=== PATIENT | female | born 1970 | race Two or more races ===

== ENCOUNTER 2021-02-14 12:30 | Inpatient (IN) | payer OTHER ==
[~2021-02-14] VITALS: Ht 170.2 cm; Wt 122.9 kg
[2021-02-14] MEDS ORDERED: METOPR PO (16:23)
[2021-02-14] MEDS ORDERED: IBERSARTAN PO (16:23)
[2021-02-14] MEDS ORDERED: PRILOSEC OTC20 MG PO (16:24)
[2021-02-14] MEDS ORDERED: PREDNISONE (16:24)
[2021-02-16] MEDS ORDERED: RAYOS5 MG (08:50)
[2021-02-16] MEDS ORDERED: IRBESARTAN-HCT1 EAC1 (08:52)
[2021-02-16] MEDS ORDERED: TOPROL XL50 M1 PO (08:52)
== END 2021-02-18 18:40 | disposition home or self-care (01) | DRG 743 ==
LOC: O/R 02-16 06:27 → SURH 02-16 07:00 → OB/GYN 02-16 18:28 → SURG-SUITE 02-17 10:34
PROVIDERS: ADMIT Specialist; ATTEND Specialist
PROC: 0UB50ZZ Excision of Right Fallopian Tube, Open Approach (ICD-10-PCS; 2021-02-16)
PROC: 0JNC0ZZ Release Pelvic Region Subcutaneous Tissue and Fascia, Open Approach (ICD-10-PCS; 2021-02-16)
PROC: 0TN60ZZ Release Right Ureter, Open Approach (ICD-10-PCS; 2021-02-16)
PROC: 0DBU0ZZ Excision of Omentum, Open Approach (ICD-10-PCS; 2021-02-16)
PROC: 0UT00ZZ Resection of Right Ovary, Open Approach (ICD-10-PCS; principal; 2021-02-16 07:00)
DX: D27.0 Benign neoplasm of right ovary (principal); N73.6 Female pelvic peritoneal adhesions (postinfective); N99.4 Postprocedural pelvic peritoneal adhesions; R19.00 Intra-abdominal and pelvic swelling, mass and lump, unspecified site; E66.01 Morbid (severe) obesity due to excess calories; I10 Essential (primary) hypertension; M79.7 Fibromyalgia